=== PATIENT | female | born 1960 | race Caucasian/White ===

== ENCOUNTER 2022-03-11 11:04 | Outpatient (CLI) | payer BC, SELFPAY ==
[2022-03-11 18:55] LABS: Alanine Aminotransferase 24 U/L (6-35); Albumin Level 4.6 g/dL (3.5-5.1); Alkaline Phosphatase 83 U/L (38-126); Anion Gap 8 mmol/L (8-16); Aspartate Amino Transferase 46 U/L (14-36); Bilirubin,Total 0.6 mg/dL (0.2-1.3); Blood Urea Nitrogen 7 mg/dL (7-17); Carbon Dioxide 26 mmol/L (22-30); Chloride 107 mmol/L (98-107); Cholesterol 221 mg/dL (0-200); Estimated Glomerular Filt Rate > 60; Glucose 89 mg/dL (65-110); HDL Direct 58 mg/dL; Potassium 4.3 mmol/L (3.4-5.0); Sodium 141 mmol/L (137-145); Triglycerides 109 mg/dL (<150)
[2022-03-11 18:56] LABS: Hematocrit 44.9 % (37.0-47.0); Hemoglobin 14.2 g/dL (12.0-15.0); Mean Corpuscular HGB Conc 31.6 g/dl (32-36); Mean Corpuscular Hemoglobin 31.8 pg (26-34); Mean Corpuscular Volume 100.7 fl (80-100); Mean Platelet Volume 11.1 fl (7.4-10.4); Platelet Count Result 284 k/mm3 (150-375); Red Blood Count 4.46 M/mm3 (4.2-5.4); Red Cell Distribution Width 13.6 % (11.5-14.5)
[2022-03-11 19:06] LABS: LDL Cholesterol Direct 106 mg/dL
== END 2022-03-11 11:05 | disposition home or self-care (01) ==
PROVIDERS: PCP Family Medicine; Visit Provider Family Medicine
DX: Z00.00 Encounter for general adult medical examination without abnormal findings (principal); R63.5 Abnormal weight gain
CPT/HCPCS: 36415; 80053; 80061; 84443; 85027

== ENCOUNTER 2022-04-15 08:34 | Outpatient (CLI) | payer BC, SELFPAY ==
[2022-04-15 21:04] LABS: Alanine Aminotransferase 27 U/L (6-35); Albumin Level 4.8 g/dL (3.5-5.1); Alkaline Phosphatase 61 U/L (38-126); Aspartate Amino Transferase 55 U/L (14-36); Bilirubin,Total 0.6 mg/dL (0.2-1.3)
[2022-04-15 22:04] LABS: Hepatitis B Surface Antigen Negative (Negative)
[2022-04-15 22:09] LABS: HAV RESULT Negative (Negative); Hepatitis B Core IgM Result Negative (Negative)
[2022-04-15 22:21] LABS: Hepatitis C Virus Antibody Negative (Negative)
== END 2022-04-15 08:35 | disposition home or self-care (01) ==
LOC: ANHBWCLAB 08:36
PROVIDERS: PCP Family Medicine; Visit Provider Family Medicine
DX: R74.01 Elevation of levels of liver transaminase levels (principal)
CPT/HCPCS: 36415; 80074; 80076

== ENCOUNTER 2023-03-14 09:37 | Outpatient (CLI) | payer BC, SELFPAY ==
[2023-03-14 19:27] LABS: Hematocrit 44.7 % (37.0-47.0); Hemoglobin 14.1 g/dL (12.0-15.0); Mean Corpuscular HGB Conc 31.5 g/dl (32-36); Mean Corpuscular Hemoglobin 31.4 pg (26-34); Mean Corpuscular Volume 99.6 fl (80-100); Mean Platelet Volume 11.1 fl (7.4-10.4); Platelet Count Result 287 k/mm3 (150-375); Red Blood Count 4.49 M/mm3 (4.2-5.4); Red Cell Distribution Width 13.3 % (11.5-14.5); White Blood Count 4.4 K/mm3 (4.5-10.0)
[2023-03-14 21:40] LABS: Alanine Aminotransferase 17 U/L (6-35); Albumin Level 4.6 g/dL (3.5-5.1); Alkaline Phosphatase 57 U/L (38-126); Anion Gap 9 mmol/L (8-16); Aspartate Amino Transferase 58 U/L (14-36); Bilirubin,Total 0.8 mg/dL (0.2-1.3); Blood Urea Nitrogen 9 mg/dL (7-17); Calcium 9.7 mg/dL (8.4-10.2); Carbon Dioxide 27 mmol/L (22-30); Chloride 103 mmol/L (98-107); Cholesterol 196 mg/dL (0-200); Estimated Glomerular Filt Rate > 60; Glucose 76 mg/dL (65-110); HDL Direct 70 mg/dL; Potassium 4.7 mmol/L (3.4-5.0); Sodium 139 mmol/L (137-145); Triglycerides 56 mg/dL (<150)
[2023-03-14 21:51] LABS: LDL Cholesterol Direct 95 mg/dL
== END 2023-03-14 09:38 | disposition home or self-care (01) ==
LOC: ANHBWCLAB 09:40
PROVIDERS: PCP Family Medicine; Visit Provider Family Medicine
DX: Z00.00 Encounter for general adult medical examination without abnormal findings (principal); K21.9 Gastro-esophageal reflux disease without esophagitis; R74.01 Elevation of levels of liver transaminase levels
CPT/HCPCS: 36415; 80053; 80061; 85027

== ENCOUNTER → 2023-03-25 07:51 | Outpatient (CLI) | payer BC, SELFPAY ==
--- NOTE | ~2023-03-25 | US_ITS ---
EXAMINATION: US abdomen limited DATE: 03/25/2023 08:09 INDICATION: Elevated liver function tests TECHNIQUE: Multiple grayscale and Doppler ultrasound images of the abdomen were obtained. COMPARISON: None available FINDINGS: The head and body of the pancreas are normal. The pancreatic tail is obscured by bowel gas. There is a 2.9 cm cyst of the left hepatic lobe. The liver is otherwise normal with normal echogenic ity and echotexture. No surface nodularity. Normal hepatopetal flow in the main portal vein. Stones a re present in the nondistended gallbladder. No pericholecystic fluid or gallbladder wall thickening a re identified. The normal common bile duct measures 4 mm. There was no sonographic Avitia sign. IMPRESSION: 1. Cholelithiasis without evidence of cholecystitis. Reviewed, dictated and finalized at location B. HEN STEWARD
== END ==
PROVIDERS: PCP Family Medicine; Visit Provider Family Medicine
DX: R74.01 Elevation of levels of liver transaminase levels (principal); K80.20 Calculus of gallbladder without cholecystitis without obstruction
CPT/HCPCS: 76705

== ENCOUNTER 2024-01-25 18:53 | Emergency (ER) | payer BC, SELFPAY ==
--- NOTE | ~2024-01-25 | XR_ITS ---
EXAMINATION: XR chest 1V portable DATE: 01/25/2024 19:29 INDICATION: Syncope. TECHNIQUE: A single frontal view of the chest was obtained. COMPARISON: None. FINDINGS: There is no pneumonia, pleural effusion, or pneumothorax. The heart size is normal. There i s internal fixation of proximal left humerus. IMPRESSION: 1. No acute cardiopulmonary disease. Reviewed, dictated and finalized at location A.
--- NOTE | 2024-01-25 18:57 | ECG_ITS ---
Test Date: 2024-01-25 19:03:31 Measurements Intervals [place] Rate: 94 P: 63 CA: 142 QRS: 75 QRSD: 77 T: 75 QT: 342 QTc: 428 Interpretive Statements SINUS RHYTHM MODERATE ST DEPRESSION [0.05+ mV ST DEPRESSION] No previous ECG available for comparison Electronically Signed On 01-26-2024 10:10:34 CDT by Dai Gerard M.D.
[2024-01-25 19:11] VITALS: BP 152/89; PULSE 92; RESP 15; TEMP 36.6; O2SAT 100
[2024-01-25 19:19] LABS: Basophils Absolute Auto 0.1 K/mm3 (0.0-0.1); Basophils Percent Auto 0.4 % (0.2-1.2); Eosinophils Absolute Auto 0.1 K/mm3 (0-0.3); Eosinophils Percent Auto 0.3 % (0-4.4); Hematocrit 44.2 % (37.0-47.0); Hemoglobin 14.8 g/dL (12.0-15.0); Immature Granulocyte Absolute 0.08 K/mm3 (0.00-0.031); Immature Granulocyte Percent A 0.4 % (0-0.5); Lymphocytes Absolute Auto 1.61 K/mm3 (0.9-3.2); Lymphocytes Percent Auto 8.9 % (18.3-44.2); Mean Corpuscular HGB Conc 33.5 g/dl (32-36); Mean Corpuscular Hemoglobin 32.2 pg (26-34); Mean Corpuscular Volume 96.1 fl (80-100); Mean Platelet Volume 10.3 fl (7.4-10.4); Monocytes Percent Auto 5.6 % (2.6-8.5); Neutrophils Absolute Auto 15.3 K/mm3 (1.3-6.7); Neutrophils Percent Auto 84.4 % (45.5-73.1); Platelet Count Result 259 k/mm3 (150-375); Red Cell Distribution Width 12.9 % (11.5-14.5); White Blood Count 18.2 K/mm3 (4.5-10.0)
[2024-01-25 19:30] LABS: Alanine Aminotransferase 28 U/L (6-35); Albumin Level 4.8 g/dL (3.5-5.1); Alkaline Phosphatase 53 U/L (38-126); Anion Gap 12 mmol/L (4-12); Aspartate Amino Transferase 32 U/L (14-36); Bilirubin,Total 0.8 mg/dL (0.2-1.3); Blood Urea Nitrogen 10 mg/dL (7-17); Calcium 10.2 mg/dL (8.4-10.2); Carbon Dioxide 26 mmol/L (22-30); Chloride 103 mmol/L (98-107); Estimated CRCL calculation 52 ml/min; Estimated Glomerular Filt Rate > 60; Glucose 111 mg/dL (65-110); Potassium 3.8 mmol/L (3.4-5.0); Sodium 141 mmol/L (137-145)
[2024-01-25 19:33] VITALS: BP 143/88; BP 151/96; BP 152/100; PULSE 90; PULSE 95; PULSE 97
[2024-01-25 20:42] LABS: Lipase 67 U/L (23-300); Magnesium 2.1 mg/dL (1.6-2.3)
[2024-01-25] MEDS: SODIUM CHLORIDE 0.9% IV 1,000 ML 999 ML IV CONT (20:45)
[2024-01-25 21:05] LABS: BEDSIDEPREGUCG Negative (Negative)
--- NOTE | 2024-01-25 21:18 | ED.DIZZY ---
HPI - Dizziness General Chief Complaint: Syncope Stated Complaint: DIZZY, CONVULSIONS, PARASTHESIAS Time Seen by Provider: 01/25/24 18:59 History of Present Illness HPI Narrative: Patient is a 63-year-old female who presents to the emergency department this evening status post a syncopal episode. 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 Patient then ran after the CT to save the CT from the dog and her dog that her in her left thumb. Patient states that she got extremely anxious and started to hyperventilate. This caused her hands to become the tingly. Patient then sat because she was feeling lightheaded and felt that she may have passed out for a few seconds. Patient denies falling or hitting her head. She states that her was with her and can confirm that she did not fall or hit her head. Patient is currently denying any symptoms including any chest pain or shortness of breath, any lightheadedness, dizziness, focal weakness, numbness and tingling. She also denies any nausea or vomiting. Patient admits that she feels a little bit constipated but denies any active abdominal pain at this time. Denies any dysuria or hematuria. No additional symptoms or concerns at this time. Related Data Home Medications Medication Instructions Recorded Confirmed estradiol 0.0375 mg/24 hr weekly 1 patch transdermal WEEKLY 03/11/22 transdermal patch Allergies Allergy/AdvReac Type Severity Reaction Status Date / Time morphine Allergy Unknown Nausea Verified 03/14/23 09:30 Review of Systems Review of Systems: All systems are reviewed and are negative unless stated otherwise in the HPI. 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 HEENT: PERRL, no rhinorrhea, no post nasal drip, oropharynx clear. Cardiovascular: Regular rate and rhythm, no murmurs, rubs or gallops, no peripheral edema. Respiratory: Clear to auscultation bilaterally, no tachypnea, no wheezing, no rhonchi, no rubs, no respiratory distress. Abdomen: Soft, nontender, nondistended, no rebound, no guarding, no peritoneal signs. Musculoskeletal: No joint swelling or deformity, normal muscle tone, 2 mm linear abrasion to dorsum of left thumb. Skin: No rashes or petechia, no signs of infection. Neurological: Alert and oriented to person, place, and time. Follows all commands. No focal deficits, speech is clear and fluent. Course Vital Signs Vital signs: Vital Signs Temperature 97.9 F 01/25/24 19:11 Pulse Rate 92 01/25/24 19:11 Respiratory Rate 15 01/25/24 19:11 Blood Pressure 152/89 H 01/25/24 19:11 Pulse Oximetry 100 01/25/24 19:11 Temperature 97.9 F 01/25/24 19:11 Pulse Rate 97 01/25/24 19:33 Respiratory Rate 15 01/25/24 19:11 Blood Pressure 152/100 H 01/25/24 19:33 Pulse Oximetry 100 01/25/24 19:11 MDM - Dizziness MDM Narrative Medical decision making narrative: The patient was evaluated by myself in the emergency department. History is obtained from Patient who is an independent historian and physical exam was performed. External medical recor
[2024-01-25 21:24] LABS: Add Urine Microscopic? NO; Appearance Urine Clear (Clear); Bilirubin Urine Negative (Negative); Blood Urine Negative (Negative); Color Urine Yellow (Yellow); Glucose Urine UA Negative (Negative); Ketones Urine Trace mg/dL (Negative); Leukocyte Esterase Ur Negative LEU/UL (Negative); Nitrate Urine Negative (Negative); Protein Urine Negative (Negative); Specific Grav Ur 1.012 (1.001-1.035); pH Urine 5.5 (5.0-9.0)
== END 2024-01-25 21:35 | disposition home or self-care (01) ==
PROVIDERS: Emergency Provider Emergency Medicine; PCP Family Medicine
DX: R55 Syncope and collapse (principal); F41.9 Anxiety disorder, unspecified
CPT/HCPCS: 36415; 71045; 80053; 81003; 81025; 83690; 83735; 85025; 93005; 96360; 99284; J7030

== ENCOUNTER 2024-09-24 07:09 | Emergency (ER) | payer BC, SELFPAY ==
--- NOTE | ~2024-09-24 | US_ITS ---
Limited Abdominal Sonogram: Real-time sonographic imaging of the right upper quadrant was performed. Clinical History: Right upper quadrant pain Findings: The liver appears normal with no evidence of mass lesion or bile duct dilatation. Main por katherine vein demonstrates normal direction of flow. The gallbladder is well distended, and demonstrates 2 .3 cm gallstone near the gallbladder neck. Additional gallstones also present. No definite gallbladde r wall thickening. The common bile duct measures 7 mm. The visualized pancreas, aorta, and IVC are u nremarkable. Impression: Cholelithiasis. Mildly dilated common bile duct. Consider follow-up MRCP as indicated. Reviewed, dictated and finalized at location . Impression: Cholelithiasis. Mildly dilated common bile duct. Consider follow-up MRCP as indicated.
--- OUTSIDE RECORDS SUMMARY | 2024-09-24 07:11 | XMS_ITS | Clinical Summary ---
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[employer] Name Role Phone No, Physician Primary Care Provider [phone] Allergies Active Allergy Reactions Criticality Noted Date Comments Morphine Nausea only Low 12/13/2020 Medications estradioL (CLIMARA) 0.0375 mg/[address] 1 patch on the skin once a week Active famotidine (PEPCID) 40 mg tabletIndicatio ns:Dyspepsia,He artburn Take 40 mg by mouth nightly as needed for heartburn Active multivitamin capsule Take 1 capsule by mouth every morning Active Active Problems Problem Noted Date Diagnosed Date H/O total vaginal hysterectomy 11/30/2019 History of cervical dysplasia 11/30/2019 Menopausal flushing 11/30/2019 Humerus fracture Surgical History Surgery Date Site/Laterality Comments HYSTERECTOMY age 42 BREAST SURGERY 04/11/2006 - 04/10/2007 COSMETIC SURGERY 04/11/2006 - 04/10/2007 Medical History Medical History Date Comments GERD (gastroesophageal reflux disease) Humerus fracture Family History Medical History Relation Name Comments Heart attack Father 60' s Anesthesia problems Neg Hx Relation Name Status Comments Father Social History Tobacco Use Types Packs/Day Years Used Date Smoking Tobacco: Never Smokeless Tobacco: Never Alcohol Use Standard Drinks/Week Comments Never 0 (1 standard drink = 0.6 oz pur e alcohol) AUDIT-C Answer Date Recorded Q1: How often do you have a drink containing alc ohol? 2-4 times a month 12/23/2020 Q2: How many drinks containi ng alcohol do you have on a typical day when you are drinking? 3 or 4 12/23/2020 Q3: How often do you have si x or more drinks on one occasion? 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 Gender Identity Not on file Sexual Orientation Not on file Obstetrics History Last Filed Vital Signs Vital Sign Reading Time Taken Comments Blood Pressure 134/85 12/23/2020 12:40 PM CDT Pulse 90 12/23/2020 12:40 PM CDT Temperature 36.1 C (97 F) 12/23/2020 12:50 PM CDT Respiratory Rate 15 12/23/2020 11:40 AM CDT Oxygen Saturation 100% 12/23/2020 12:40 PM CDT Inhaled Oxygen Concentration - - Weight 87.8 kg (193 lb 9.6 oz) 12/19/2020 8:25 A M CDT Height 167.6 cm (5' 6) 12/19/2020 8:25 AM CDT Body Mass Index 31.25 12/19/2020 8:25 AM CDT Plan of Treatment Health Maintenance Due Date Last Done Comments Breast Cancer Screening-Mammogram 1962 Colon Cancer Screening-Colonoscopy 1962 Depression Screening 1962 Hepatitis C Screening 1962 DTaP/Tdap/Td Vaccine (1 - Tdap) 1973 Hepatitis B Screening 1980 Regular Well Visit/Exam 18-64 1980 Zoster Vaccine (1 of 2) 2012 Influenza Vaccine (Season Ended) 2024 Pneumococcal vaccine <65 Aged Out No longer eligible based on patient's age to complete this topic Medical Devices Implanted Type Area Area Manager Device Identifier Shelf Expiration Date Model / Serial / Lot Synthes 04.017.255s Multiloc 7mm 9.5mm 255mm Cannulated Humeral Left Long Straight - [id number] Implanted:Qty: 1 on 12/23/2020 by Randee Womack MD at [facility] Nail Left: Humerus Synthes I [id number] / / Synthes 04.005.416 4mm 3.3mm 26mm Lock Self Tap Blunt Tip 2 Lead Tibial T25 Full - [id number] Implanted:Qty: 1 on 12/23/2020 by Randee Womack MD at [facility] Synthes I 04.005.41 6 / / Synthes [id number] 4mm 3.3mm 24mm Lock Self Tap Blunt Tip 2 Lead Tibial T25 Full - [id number] Implanted:Qty: 1 on 12/23/2020 by Randee Womack MD at [facility] Synthes I 04.005.41 4 / / Synthes 04.019.040 Multiloc 4.5mm 3.9mm 40mm Self Cut Suture Hole Countersinkable - [id number] Implanted:Qty: 3 on 12/23/2020 by Randee Womack MD at [facility] Synthes I 04.019.04 0 / / Insurance Startist CHOICE Natera OOS ANTHEM ACCESS CHOICE Natera OOS 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
--- OUTSIDE RECORDS SUMMARY | 2024-09-24 07:11 | XMS_ITS | Clinical Summary ---
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 [employer] Name Role Phone Unavailable Primary Care Provider Unavailabl e Allergies Active Allergy Reactions Criticality Noted Date Comments Morphine Nausea and Vomiting Low 11/30/2019 Medications estradioL (CLIMARA) 0.0375 mg/24 hr patch APPLY ONE PATCH TO SKIN WEEKLY 12 Patch 03/05/2024 Active Active Problems Problem Noted Date Diagnosed Date Menopausal flushing 11/30/2019 H/O total vaginal hysterectomy 11/30/2019 History of cervical dysplasia 11/30/2019 Family History Medical History Relation Name Comments Heart Disease Father Micha Montgomery Hypertension Father Micha Montgomery Arthritis-osteo Maternal Grandmother Colon Cancer Mother Deb Montgomery Rectal Cancer Mother Deb Montgomery Relation Name Status Comments Father Micha Montgomery Maternal Grandmother Mother Deb Montgomery Social History Tobacco Use Types Packs/Day Years Used Date Smoking Tobacco: Never Smokeless Tobacco: Never Alcohol Use Standard Drinks/Week Comments Not Currently 1 (1 standard drink = 0.6 oz pur e alcohol) Comments No Sex and Gender Information Value Date Recorded Sex Assigned at Not on file Legal Sex Female 1:53 PM CDT Gender Identity Not on file Sexual Orientation Not on file Last Filed Vital Signs Vital Sign Reading Time Taken Comments Blood Pressure 130/90 01/03/2023 12:45 PM CDT Pulse - - Temperature - - Respiratory Rate - - Oxygen Saturation - - Inhaled Oxygen Concentration - - Weight 69.8 kg (153 lb 12.8 oz) 023 12:45 PM CDT Height 163.2 cm (5' 4.25) 03/10/2022 9:40 AM CS T Body Mass Index 26.19 03/10/2022 9:40 AM RECORD PRESSMAN Plan of Treatment Health Maintenance Due Date Last Done Comments DTAP/TDAP/TD VACCINES (1 - Tdap) 1981 COLORECTAL SCREENING 12/18/2007 Colorectal Cancer Screening 12/18/2007 FIT-DNA Q 3 years 12/18/2007 FIT/FOBT Q 1 year 12/18/2007 Flex Sig/CT Colonography Q 5 years 12/18/2007 ZOSTER VACCINE (1 of 2) 2012 BREAST CANCER SCREENING 12/12/2020 12/13/2019 INFLUENZA VACCINE (#1) 2023 RSV VACCINE (60+ or ) (1 - 1-dose 75+ series) 2037 Procedures Procedure Name Priority Date/Time Associated Diagnosis Comments MAMMO SCREEN BILAT W OR WO CAD Routine 12/13/2019 Well woman exam with routine gynecological exam from Last 3 Months or Most Recently Relevant to Health Maintenance Results * MAMMO SCREEN BILAT W OR WO CAD (12/13/2019) Anatomical Region Laterality Modality Breast Bilateral Mammography Maria Isabel Ramsay MD MAMMO ORDERABLES Final Result from Last 3 Months or Most Recently Relevant to Health Maintenance Insurance BCBS BLUE ACCESS/TRUE BLUE PPO
--- OUTSIDE RECORDS SUMMARY | 2024-09-24 07:12 | XMS_ITS | Referral Summary ---
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 Gender Identity Not on file Sexual Orientation [...] 12/19/2020 8:25 AM CDT Plan of Treatment Not on file Medical Devices Implanted Type Area Rehabilitation Therapist Device Identifier Shelf Expiration Date Model / Serial / Lot Synthes 04.017.255s Multiloc 7mm 9.5mm 255mm Cannulated Humeral Left Long Straight - [id number] Implanted:Qty: 1 on 12/23/2020 by Randee Womack MD at [facility] Nail Left: Humerus Synthes I 04.017.25 5S / / Synthes 04.005.416 4mm 3.3mm 26mm Lock Self Tap Blunt Tip 2 Lead Tibial T25 Full - [id number] Implanted:Qty: 1 on 12/23/2020 by Randee Womack MD at [facility] Synthes I 04.005.41 6 / / Synthes 04.005.414 4mm 3.3mm 24mm Lock Self Tap Blunt Tip 2 Lead Tibial T25 Full - [id number] Implanted:Qty: 1 on 12/23/2020 by Randee Womack MD at [facility] Synthes I 04.005.41 4 / / Synthes 04.019.040 Multiloc 4.5mm 3.9mm 40mm Self Cut Suture Hole Countersinkable - [id number] Implanted:Qty: 3 on 12/23/2020 by Randee Womack MD at [facility] Synthes I 04.019.04 0 / / Insurance ANTHEM ACCESS CHOICE BLUE ACCESS OOS ANTHEM ACCESS CHOICE BLUE ACCESS OOS Care Teams Public Safety Police Relationship Specialty Start Date End Date No, Physician PCP - General 12/13/20
[2024-09-24 07:13] VITALS: BP 165/92; PULSE 80; RESP 16; TEMP 36.7; O2SAT 96
--- NOTE | 2024-09-24 07:19 | ED.GENADULT ---
HPI - General Adult General Chief complaint: Abdominal Pain Stated complaint: abd pain Time Seen by Provider: 09/24/24 07:09 History of Present Illness HPI narrative: 63-year-old female present to the emergency department for evaluation for epigastric pain that is been ongoing since last night. Patient states approximately 8:00 p.m. she had onset of epigastric pain. Patient did have associated nausea and vomiting. Patient states the pain is more epigastric does radiate to her right upper quadrant and into her back. Patient states she does have prior history is of gallbladder attacks the last 1 being approximately 1 year ago. Patient denies any cardiac history. Patient denies any alcohol consumption. Related Data Allergies Allergy/AdvReac Type Severity Reaction Status Date / Time morphine AdvReac Unknown Nausea Verified 09/24/24 07:21 Review of Systems Review of Systems: All systems reviewed & are unremarkable except as noted in HPI and below PMFSH Social History Social History Smoking status: Never smoker Alcohol intake: current Alcohol use details: Beer Wine once a Month Substance use: never Substance use type: does not use Lack of Transportation: No Lack of Food: Never True Current Housing: I Have Housing Concerned About Future Housing: No Difficulty Paying Gas/Electric Bills: No Difficulty Paying for Meds: No Currently Unemployed: No Education: Trade/Vocational Certificate Difficulty w/ Childcare or Family Care: No Living arrangements: with roommate(s) Occupation/Education: occupation 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 HEAD: normocephalic, atraumatic. EYES: PERRLA/EOMI, conjunctivae clear. NOSE: Normal no drainage EARS:TMS clear with good light reflex. THROAT: Pharynx clear, no exudate. NECK: Supple. No adenopathy, no masses. RESPIRATORY: Airway patent, respirations nonlabored. Clear to auscultation bilaterally, no rales, rhonchi, wheezing. CARDIOVASCULAR: Regular rate and rhythm without murmurs rubs or gallops. ABDOMINAL: Right upper quadrant tenderness to palpation MUSCULOSKELETAL: Moves all extremities. Strength/ROM intact, No edema, No calf tenderness. NEURO: Alert. Cranial nerves II through XII intact. Good gait. Good coordination SKIN: Warm, dry. Normal Color Course Vital Signs Vital signs: Vital Signs Temperature 98.1 F 09/24/24 07:13 Pulse Rate 80 09/24/24 07:13 Respiratory Rate 16 09/24/24 07:13 Blood Pressure 165/92 H 09/24/24 07:13 Pulse Oximetry 96 09/24/24 07:13 Oxygen Delivery Room Air 09/24/24 07:13 Temperature 98.1 F 09/24/24 07:13 Pulse Rate 80 09/24/24 07:13 Respiratory Rate 16 09/24/24 07:13 Blood Pressure 165/92 H 09/24/24 07:13 Pulse Oximetry 96 09/24/24 07:13 Oxygen Delivery Room Air 09/24/24 07:13 Medical Decision Making MDM Narrative Medical decision making narrative: 63-year-old female present to the emergency department for evaluation for upper quadrant abdominal pain. Patient is currently afebrile but does have a minor leukocytosis of 10.6 hemoglobin of 14. Patient's INR is 1.0. Patient has no elevation in her lactic acid. Patient's T bili is within normal limits. Patient does have mild elevation of AST and ALT with normal alk-phos and normal lipase. Patient did initially feel improved with treatment IV fluids, famotidine, Protonix and IV Dilaudid. Ultrasound showed Cholelithiasis, Mildly dilated common bile duct. On re-evaluation patient states her pain is controlled but is not gone. I did discuss admission for the patient for further evaluation of her liver enzymes to make sure they do not increase hand to order the MRCP as inpatient. Patient did prefer the option to go home following a clear liquid diet or a low-fat diet, to have outpatient follow-up with primary care physician and to have the MRCP ordered as outpatient. Patient and family prefer to be discharged home. Patient was well-appearing at time of discharge. Patient was encouraged to return to emergency department for any worsening symptoms. Differential Diagnosis Differential Diagnosis: Pancreatitis, cholelithiasis, cholecystitis, colitis, diverticulitis Vital Signs Vital Signs: Vital Signs Temperature 98.1 F 09/24/24 07:13 Pulse Rate 80 09/24/24 07:13 Respiratory Rate 16 09/24/24 07:13 Blood Pressure 165/92 H 09/24/24 07:13 Pulse Oximetry 96 09/24/24 07:13 Oxygen Delivery Room Air 09/24/24 07:13 Temperature 98.1 F 09/24/24 07:13 Pulse Rate 80 09/24/24 07:13 Respiratory Rate 16 09/24/24 07:13 Blood Pressure 165/92 H 09/24/24 07:13 Pulse Oximetry 96 09/24/24 07:13 Oxygen Delivery Room Air 09/24/24 07:13 Lab Data Lab results reviewed: Yes I reviewed the patient's lab results. 09/24/24 07:26 09/24/24 07:26 Labs: Lab Results 09/24/24 09/24/24 Range/Units 07:26 08:30 WBC 10.6 H (4.5-10.0) K/mm3 RBC 4.43 (4.2-5.4) M/mm3 Hgb 14.0 (12.0-15.0) g/dL Hct 43.3 (37.0-47.0) % MCV 97.7 (80-100) fl MCH 31.6 (26-34) pg MCHC 32.3 (32-36) g/dl RDW 13.2 (11.5-14.5) % Plt Count 288 (150-375) k/mm3 MPV 10.7 H (7.4-10.4) fl Immature Gran % (Auto) 0.3 (0-0.5) % Neut % (Auto) 88.6 H (45.5-73.1) % Lymph % (Auto) 8.4 L (18.3-44.2) % Barnes % (Auto) 2.5 L (2.6-8.5) % Eos % (Auto) 0.0 (0-4.4) % Baso % (Auto) 0.2 (0.2-1.2) % Lymph # (Auto) 0.89 L (0.9-3.2) K/mm3 Barnes # (Auto) 0.3 (0.1-0.6) K/mm3 Eos # (Auto) 0.0 (0-0.3) K/mm3 Baso # (Auto) 0.0 (0.0-0.1) K/mm3 Abs Immat Gran (auto) 0.03 (0.00-0.031) K/mm3 Absolute Neuts (auto) 9.4 H (1.3-6.7) K/mm3 Absolute Nucleated RBC 0.000 (0.0-0.012) K/mm3 Nucleated RBC % 0.0 (0.0-0.2) % PT 12.7 (11.1-14.7) Seconds INR 1.0 APTT 27.0 (22.3-36.8) Seconds Sodium 140 (137-145) mmol/L Potassium 3.9 (3.4-5.0) mmol/L Chloride 104 (98-107) mmol/L Carbon Dioxide 24 (22-30) mmol/L Anion Gap 12 (4-12) mmol/L BUN 6 L (7-17) mg/dL Creatinine 0.73 (0.7-1.0) mg/dL Estim Creat Clear Calc 63 ml/min Estimated GFR > 60 (59 - ) Glucose 126 H (65-110) mg/dL Lactic Acid 2.0 (0.7-2.0) mmol/L Calcium 9.5 (8.4-10.2) mg/dL Total Bilirubin 0.4 (0.2-1.3) mg/dL AST 46 H (14-36) U/L ALT 49 H (6-35) U/L Alkaline Phosphatase 64 (38-126) U/L Total Protein 7.9 (6.3-8.2) g/dL Albumin 4.7 (3.5-5.1) g/dL Lipase 74 (23-300) U/L Urine Color Pending Urine Appearance Pending Urine pH Pending Ur Specific [place] Pending Urine Protein Pending Urine Glucose (UA) Pending Urine Ketones Pending Ur Blood (Man) Pending Urine Nitrate Pending Urine Bilirubin Pending Urine Urobilinogen Pending Leukocyte Esterase Rfl Pending Imaging Data Radiologist's impression: Impressions Abdomen Ultrasound 09/24/24 08:09 Impression: Cholelithiasis. Mildly dilated common bile duct. Consider follow-up MRCP as indicated. Discharge Plan Discharge Clinical Impression: Biliary colic Patient Disposition: Home Condition: Stable Instructions: Antibiotic Form, Biliary Colic (ED), Low Fat Diet (ED), Clear Liquid Diet (ED), Abdominal Pain (ED) Additional Instructions: Zofran for nausea control. Ibuprofen for pain control. [place] as needed for additional pain control. Follow a clear liquid diet for the next 1-3 days. Advance to a low-fat diet as tolerated. You were offered admission for further evaluation, pain management and to have an MRCP done as an patient but you preferred to be discharged to home. If you have any worsening symptoms then please call or return to the emergency department. Follow-up with primary care physician in order to have the MRCP scheduled as outpatient. You will also need follow-up with GI. Patient Language: Bengali Prescriptions: New hydrocodone-acetaminophen 5-325 mg tablet 1 tablet PO Q12H PRN (Reason: pain) Qty: 14 0RF ondansetron 4 mg tablet,disintegrating 4 mg PO Q8H PRN (Reason: nausea and vomiting) Qty: 14 0RF No Action Zepbound 5 mg/0.5 mL pen injector 5 mg subcut WEEKLY Qty: 2 3RF estradiol 0.0375 mg/24 hr patch weekly 1 patch transdermal WEEKLY Qty: 12 3RF Follow-up/Referrals: Paulino Laws MD [Primary Care Provider] - Tomas Pinon MD [Physician] -
[2024-09-24] MEDS: SODIUM CHLORIDE 0.9% IV 1,000 ML 999 ML IV CONT (07:25)
[2024-09-24] MEDS: HYDROmorphone HCL INJ (*CRX) 2 MG/ML VIAL 0.5 MG IV PUSH (07:26)
[2024-09-24 07:38] LABS: Basophils Percent Auto 0.2 % (0.2-1.2); Hematocrit 43.3 % (37.0-47.0); Immature Granulocyte Absolute 0.03 K/mm3 (0.00-0.031); Immature Granulocyte Percent A 0.3 % (0-0.5); Lymphocytes Absolute Auto 0.89 K/mm3 (0.9-3.2); Lymphocytes Percent Auto 8.4 % (18.3-44.2); Mean Corpuscular HGB Conc 32.3 g/dl (32-36); Mean Corpuscular Hemoglobin 31.6 pg (26-34); Mean Corpuscular Volume 97.7 fl (80-100); Mean Platelet Volume 10.7 fl (7.4-10.4); Monocytes Absolute Auto 0.3 K/mm3 (0.1-0.6); Monocytes Percent Auto 2.5 % (2.6-8.5); Neutrophils Absolute Auto 9.4 K/mm3 (1.3-6.7); Neutrophils Percent Auto 88.6 % (45.5-73.1); Platelet Count Result 288 k/mm3 (150-375); Red Blood Count 4.43 M/mm3 (4.2-5.4); Red Cell Distribution Width 13.2 % (11.5-14.5); White Blood Count 10.6 K/mm3 (4.5-10.0)
[2024-09-24 07:41] LABS: Alanine Aminotransferase 49 U/L (6-35); Albumin Level 4.7 g/dL (3.5-5.1); Alkaline Phosphatase 64 U/L (38-126); Anion Gap 12 mmol/L (4-12); Aspartate Amino Transferase 46 U/L (14-36); Bilirubin,Total 0.4 mg/dL (0.2-1.3); Blood Urea Nitrogen 6 mg/dL (7-17); Calcium 9.5 mg/dL (8.4-10.2); Carbon Dioxide 24 mmol/L (22-30); Chloride 104 mmol/L (98-107); Estimated CRCL calculation 63 ml/min; Estimated Glomerular Filt Rate > 60; Glucose 126 mg/dL (65-110); Lipase 74 U/L (23-300); Potassium 3.9 mmol/L (3.4-5.0); Sodium 140 mmol/L (137-145); Total Protein 7.9 g/dL (6.3-8.2)
[2024-09-24 07:43] LABS: Prothrombin Time 12.7 Seconds (11.1-14.7)
[2024-09-24] MEDS: FAMOTIDINE 20 MG/2 ML VIAL IV PUSH (08:34)
[2024-09-24] MEDS: PANTOPRAZOLE SODIUM IV 40 MG VIAL IV PUSH (08:35)
[2024-09-24 08:48] LABS: Add Urine Microscopic? YES; Appearance Urine Clear (Clear); Bacteria Urine None Seen /hpf; Bilirubin Urine Negative (Negative); Blood Urine Negative (Negative); Color Urine Yellow (Yellow); Glucose Urine UA Negative (Negative); Ketones Urine Negative (Negative); Leukocyte Esterase Ur Negative LEU/UL (Negative); Nitrate Urine Negative (Negative); Non Pathogenic Casts 0-2; Protein Urine Trace mg/dL (Negative); RBC Urine 0-2 /hpf (0-2); Specific Grav Ur 1.021 (1.001-1.035); Squamous Epithelial Cell Urine None Seen /hpf (Few); Urobilinogen Urine 0.2 mg/dL (<2.0); WBC Urine 0-5 /hpf (0-3); pH Urine 8.5 (5.0-9.0)
[2024-09-24] MEDS: HYDROcodone/acetaminophen (*CRX) 5-325 MG TABLET 1 TAB PO (08:56)
[2024-09-24 09:05] VITALS: BP 160/88; PULSE 68; RESP 19; TEMP 36.6; O2SAT 100
== END 2024-09-24 09:05 | disposition home or self-care (01) ==
PROVIDERS: Emergency Provider Emergency Medicine; PCP Family Medicine
DX: K80.20 Calculus of gallbladder without cholecystitis without obstruction (principal); K83.8 Other specified diseases of biliary tract
CPT/HCPCS: 36415; 76705; 80053; 81001; 83605; 83690; 85025; 85610; 85730; 96361; 96374; 96375; 99284; A9270; J1171; J2470; J7030

== ENCOUNTER 2024-11-13 13:02 | Outpatient (CLI) | payer BC, SELFPAY ==
--- NOTE | ~2024-11-13 | US_ITS ---
EXAMINATION: US soft tissue head and neck DATE: 11/13/2024 13:23 INDICATION: Right posterior neck bumps TECHNIQUE: Multiple grayscale and Doppler ultrasound images of the region of concern at the posterior right neck were obtained. COMPARISON: None FINDINGS: Normal appearance to the subcutaneous fat and muscles superficial to the echogenic and shadowing bone s likely of the cervical spine given the region of concern. No pathologically enlarged lymphadenopath y, abnormal masses or fluid collections identified. IMPRESSION: 1. No pathologically enlarged lymphadenopathy or other abnormal masses or fluid collections at the re gion of concern. Reviewed, dictated and finalized at location A. IMPRESSION: 1. No pathologically enlarged lymphadenopathy or other abnormal masses or fluid collections at the region of concern.
--- OUTSIDE RECORDS SUMMARY | 2024-11-13 13:10 | XMS_ITS | Clinical Summary ---
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 Gender Identity Not on file Sexual Orientation [...] Vaccine (1 of 2) 2012 Influenza Vaccine (#1) 2024 Pneumococcal vaccine <65 Aged Out No longer eligible based on patient's age to complete this topic Medical Devices Implanted Type Area Jury Consultant Device Identifier Shelf Expiration Date Model / Serial / Lot Synthes 04.017.255s Multiloc 7mm 9.5mm 255mm Cannulated Humeral Left Long Straight - [id number] Implanted:Qty: 1 on 12/23/2020 by Randee Womack MD at [facility] Nail Left: Humerus Synthes I [id number] / / Synthes 04.005.416 4mm 3.3mm 26mm Lock Self Tap Blunt Tip 2 Lead Tibial T25 Full - [id number] Implanted:Qty: 1 on 12/23/2020 by Randee Womack MD at [facility] Synthes I 04.005.41 6 / / Synthes 04.005.414 4mm 3.3mm 24mm Lock Self Tap Blunt Tip 2 Lead Tibial T25 Full - [id number] Implanted:Qty: 1 on 12/23/2020 by Randee Womack MD at [facility] Synthes I 04.005.41 4 / / Synthes 04.019.040 Multiloc 4.5mm 3.9mm 40mm Self Cut Suture Hole Countersinkable - [id number] Implanted:Qty: 3 on 12/23/2020 by Randee Womack MD at [facility] Synthes I 04.019.04 0 / / Insurance [facility] CHOICE [employer] OOS ANTHEM ACCESS CHOICE [employer] OOS Care Teams Retail Selling Specialist Relationship Specialty Start Date End Date No, Physician PCP - General 12/13/20
--- OUTSIDE RECORDS SUMMARY | 2024-11-13 13:10 | XMS_ITS | Clinical Summary ---
Author Organization [facility] Address [address] [place] [address] Phone Care Team Providers Care Fabricator Foam Rubber Name Role Phone Unavailable Primary Care Provider [...] Arthritis-osteo Maternal Grandmother Colon Cancer Mother Deb oMntgomery Rectal Cancer Mother Deb Montgomery Relation Name [...] Body Mass Index 26.19 03/10/2022 9:40 AM ARBORER Plan of Treatment Health Maintenance Due Date Last Done Comments DTAP/TDAP/TD VACCINES (1 - Tdap) 1981 COLORECTAL SCREENING 12/18/2007 Colorectal Cancer Screening 12/18/2007 FIT-DNA Q 3 years 12/18/2007 FIT/FOBT Q 1 year 12/18/2007 Flex Sig/CT Colonography Q 5 years 12/18/2007 ZOSTER VACCINE (1 of 2) 2012 BREAST CANCER SCREENING 12/12/2020 12/13/2019 INFLUENZA VACCINE (#1) 2024 RSV VACCINE (60+ or ) (1 - [...]
--- OUTSIDE RECORDS SUMMARY | 2024-11-13 13:10 | XMS_ITS | Referral Summary ---
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005.414 4mm 3.3mm 24mm Lock Self Tap Blunt Tip 2 Lead Tibial T25 Full - [id number] Implanted:Qty: 1 on 12/23/2020 by Randee Womack MD at [facility] Synthes I 04.005.41 4 / / Synthes 04.019.040 Multiloc 4.5mm 3.9mm 40mm Self Cut Suture Hole Countersinkable - [id number] Implanted:Qty: 3 on 12/23/2020 by Randee Womack MD at [facility] Synthes I 04.019.04 0 / / Insurance ANTHEM ACCESS CHOICE BLUE ACCESS OOS ANTHEM ACCESS CHOICE BLUE ACCESS OOS Care Teams Research And Development Tester Relationship Specialty Start Date End Date No, Physician PCP - General 12/13/20
--- OUTSIDE RECORDS SUMMARY | 2024-11-13 13:10 | XMS_ITS | Clinical Summary ---
Author Organization [facility] Address [address] [place] [address] Care Team Providers Care Support Associate Name Role Phone Paulino Laws MD Primary Care Provider [phone] Source Comments [facility],non-owned Affiliates and Associated Physician Practices is amultiple site organization consisting of ambulatory clinics and hospital sitesin [place], [place], [place] and [place]. This disclosure is being madepursuant to the Care Everywhere program and may not contain all information available regarding this patient. Last updated 17.[facility] Health Encounters Date Type Department Care Team Description 10/23/2024 4:26 PM CDT - 10/23/2024 11:59 PM CDT Hospital Encounter [facility] Imaging Services - [place] [address] [place] [address] aPulino Laws MD Discharge Disposition: Home or Self Care 10/10/2024 Travel 10/03/2024 Telephone [facility] Health Weight Management Services [address] [place] [address], [address] [address] Ronald Ruiz MD Referral 09/26/2024 Office Visit External [facility] Health Weight Management Services [address] [facility], [facility] [address] [place] [address] Ronald Ruiz MD 09/26/2024 Office Visit External [facility] Health Weight Management Services [address] [place] [address], [facility] [address] [place] [address] Ronald Ruiz MD 09/26/2024 Office Visit External [facility] Health Weight Management Services [id number] [place] [address], [facility] [address] [place] [address] Ronald Ruiz MD from Last 3 Months Social History Tobacco Use Types Packs/Day Years Used Date Smoking Tobacco: Never Assessed Comments Unknown Sex and Gender Information Value Date Recorded Sex Assigned at Female 10/10/2024 11:36 AM CDT Legal Sex Female 1:52 PM CDT Gender Identity Not on file Sexual Orientation Not on file Plan of Treatment Upcoming Encounters Date Type Department Care Team ([facility] Contact Info) Description 11/29/2024 8:20 AM CDT Office Visit [facility] Weight Management Services [address] [facility], [address] [place] [address] [place] [address] [facility] [address] [place] [address] Health Maintenance Due Date Last Done Comments COLOGUARD (AGES 45-75) - COL ON CA SCREENING 1962 COLON MONITORING 1962 COLONOSCOPY - COLON CA SCREENING 1962 CT COLONOGRAPHY - COLON CA SCREENING 1962 Colorectal Cancer Screening 1962 FIT - COLON CA SCREENING 1962 FLEX SIG - COLON CA SCREENING 1962 LIPID TESTING 1962 HIV SCREENING 1977 HEPATITIS C SCREENING 12/12/1980 DTAP/TDAP/TD VACCINES (1 - Tdap) 1981 PAP SMEAR 12/18/1983 PNEUMOCOCCAL VACCINE 50+ (1 of 1 - PCV) 2012 ZOSTER VACCINE (1 of 2) 2012 MAMMOGRAM 12/12/2021 12/13/2019 COVID-19 VACCINE ( - 2023-2 5 season) 2023 DEPRESSION SCREENING 04/11/2024 INFLUENZA VACCINE (#1) 2024 Respiratory Syncytial Virus (RSV) Vaccine Pt: or over 60 yrs (1 - 1-dose 75+ series) 2037 HEPATITIS B VACCINE Aged Out No longe r eligible based on patient's age to complete this topic HIB VACCINE Aged Out No longer eligi ble based on patient's age to complete this topic HPV VACCINE Aged Out No longer eligi ble based on patient's age to complete this topic MENINGOCOCCAL (Group B) VACC INE SHARED DECISION-MAKING Aged Out No longer eligibl e based on patient's age to complete this topic MENINGOCOCCAL GROUPS A/C/Y/W VACCINE Aged Out No longer eligible b ased on patient's age to complete this topic Procedures Procedure Name Priority Date/Time Associated Diagnosis Comments MRI ABDOMEN W MRCP WO CONT W3D Routine 10/23/2024 5:26 PM CDT Calculus of gallbladder without cholecystitis without obstruction from Last 3 Months Results * MRI MRCP (non contrast) (10/23/2024 5:26 PM CDT) Anatomical Region Laterality Modality Abdomen Magnetic Resonan ce 10/24/2024 12:2 5 PM CDT Narrative 10/24/2024 12:28 PM CDT Examination: MRI abdomen with magnetic resonance cholangiography. Indication for examination: Epigastric and right upper quadrant abdominal pain. Choledocholithiasis. Noncontrast T1 and T2-weighted images of the upper abdomen were obtained. Magnetic resonance cholangiography is performed with 2 dimensional and 3 dimensional technique. No prior imaging studies are available. Liver and spleen are normal in size. There is a small, simple appearing cyst segment 5 liver posteriorly. This is incidental in appearance. No other liver parenchymal abnormality identified. Spleen is normal in size. Pancreas is normal in size and appearance. No focal pancreatic mass, active or acute inflammatory change identified. There is no adenopathy. No free peritoneal fluid. Kidneys are symmetric in size. No pleural or pericardial effusion. Magnetic resonance cholangiography reveals cholelithiasis with 2 large gallstones in the gallbladder. There is gallbladder wall thickening suggesting cholecystitis. Intrahepatic and extrahepatic bile ducts are normal in caliber. No filling defect identified to suggest the diagnosis of choledocholithiasis. Pancreatic duct is normal in caliber. CONCLUSION: Cholelithiasis with gallbladder wall thickening suggesting cholecystitis. No evidence of choledocholithiasis or abnormal bile duct dilatation. Small simple cyst liver. No other focal findings. > Interpreting Provider: Torrey Best MD on 10/24/2024 12:28 PM Procedure Note Torrey Best MD - 10/24/2024 Examination: MRI abdomen with magnetic resonance cholangiography. Indication for examination: Epigastric and right upper quadrantabdominal pain. Choledocholithiasis. Noncontrast T1 and T2-weighted images of the upper abdomen wereobtained. Magnetic resonance cholangiography is performed with 2 dimensional and 3 dimensional technique. No prior imaging studies are available. Liver and spleen are normal in size. There is a small, simple appearing cyst segment 5 liver posteriorly. This is incidental in appearance. No other liver parenchymal abnormality identified. Spleen is normal insize. Pancreas is normal in size and appearance. No focal pancreatic mass,active or acute inflammatory change identified. There is no adenopathy. No free peritoneal fluid. Kidneys are symmetricin size. No pleural or pericardial effusion. Magnetic resonance cholangiography reveals cholelithiasis with 2 large gallstones in the gallbladder. There is gallbladder wall thickening suggesting cholecystitis. Intrahepatic and extrahepatic bile ducts are normal in caliber. Nofilling defect identified to suggest the diagnosis of choledocholithiasis. Pancreatic duct is normal in caliber. CONCLUSION: Cholelithiasis with gallbladder wall thickening suggesting cholecystitis. No evidence of choledocholithiasis or abnormal bile duct dilatation. Small simple cyst liver. No other focal findings. > Interpreting Provider: Torrey Best MD on 10/24/2024 12:28 PM us Paulino Laws MD MR ORDERABLES Final Result from Last 3 Months Insurance [facility] Care Teams Support Associate Relationship Specialty Start Date End Date Paulino Laws MD [address] [place] [phone] PCP - General Family Medicine 10/23/24
== END 2024-11-13 13:03 | disposition home or self-care (01) ==
PROVIDERS: PCP Family Medicine; Visit Provider Family Medicine
DX: R22.1 Localized swelling, mass and lump, neck (principal)
CPT/HCPCS: 76536